=== PATIENT | female | born 1970 | race Caucasian/White ===

== ENCOUNTER 2019-07-09 17:14 | Emergency (ER) | payer BC ==
[~2019-07-09] VITALS: Ht 162.6 cm; Wt 49.9 kg
[~2019-07-09 17:14] MED LIST: AMOXICILLIN 50500 MG; ANTIVERT25 MG PO; AUGMENTIN 875875 MG PO; HYDROCODONE-AP1 EAC6 PO; IBUPROFEN 800800 M1 PO; IRON325 PO; NAPROSYN500 MG PO; NOHOMEMEDICATIONS; PRENATAL; ROBAXIN 750 MG750 M1 PO; VICODIN 5-5001 EACH PO; VITAMIN D1000 UNI1 PO
[2019-07-09 17:33] LABS: URINE BILIRUBIN NEGATIVE (Negative); URINE BLOOD 1+ (Negative); URINE CLARITY CLEAR; URINE COLOR YELLOW; URINE GLUCOSE-RANDOM NEGATIVE (Negative); URINE KETONES NEGATIVE (Negative); URINE LEUKOCYTES NEGATIVE (Negative); URINE NITRITE NEGATIVE (Negative); URINE PROTEIN NEGATIVE (Negative)
[2019-07-09 17:36] LABS: ABSOLUTE EOSINOPHILS 0.1 thou/uL (0.0-0.7); ABSOLUTE LYMPHOCYTES 2.5 thou/uL (0.8-5.3); ABSOLUTE MONOCYTES 0.4 thou/uL (0.0-1.2); BASOPHILS 0.3 %; EOSINOPHILS 0.6 %; HEMATOCRIT 38.8 % (37.0-47.0); LYMPHOCYTES 27.6 %; MCHC 33.6 g/dL (28.0-37.0); MCV 89.4 fL (80.0-100.0); MONOCYTES 4.7 %; MPV 7.7 fl. (7.2-11.1); NUCLEATED RBCS 0 /100WBC; PLATELET COUNT* 318 thou/uL (150-400); POLYS 66.8 %; RBC 4.34 mil/uL (4.20-5.00); RDW-CV 13.5 % (10.5-14.5)
[2019-07-09 17:41] LABS: BACTERIA 1-9 Few /HPF (None Seen); CASTS None Seen /LPF (None Seen); CRYSTALS None Seen /LPF (None Seen); MUCUS >6 Heavy strn/LPF (None Seen); SQUAMOUS 4-10 Moderate /LPF (0-3); URINE RBC 3-10 Few /HPF (0-2); URINE WBC 0-5 Rare /HPF (0-5)
[2019-07-09 17:47] LABS: CALCIUM 8.6 mg/dL (8.5-10.1); CREATININE 0.6 mg/dL (0.6-1.3)
[2019-07-09 17:51] LABS: ALBUMIN 3.9 g/dL (3.4-5.0); TOTAL BILIRUBIN 0.8 mg/dL (<0.1-1.0); TOTAL PROTEIN 8.3 g/dL (6.4-8.2)
[2019-07-09 19:29] VITALS: BP 130/78
== END 2019-07-09 19:30 | disposition home or self-care (01) ==
LOC: M.ERS 17:14
PROVIDERS: Physician Assistant
DX: N83.202 Unspecified ovarian cyst, left side (principal); E87.6 Hypokalemia; Z88.5 Allergy status to narcotic agent

== ENCOUNTER 2019-09-22 14:50 | Emergency (ER) | payer BC ==
[~2019-09-22] VITALS: Ht 162.6 cm; Wt 49.9 kg
[2019-09-22] MEDS ORDERED: MOBIC7.5 MG PO (15:38)
[2019-09-22] MEDS ORDERED: NORCO 5-325 TA1 EAC1 PO (15:38)
[2019-09-22 15:58] VITALS: BP 120/68
== END 2019-09-22 16:02 | disposition home or self-care (01) ==
LOC: M.ERS 14:50
DX: M25.562 Pain in left knee (principal); Z85.41 Personal history of malignant neoplasm of cervix uteri; Z90.11 Acquired absence of right breast and nipple; Z88.6 Allergy status to analgesic agent

== ENCOUNTER 2019-11-16 12:04 | Emergency (ER) | payer BC ==
[~2019-11-16] VITALS: Ht 162.6 cm; Wt 49.9 kg
[~2019-11-16 12:04] MED LIST changes: +MOBIC7.5 MG PO; +NORCO 5-325 TA1 EAC1 PO
[2019-11-16] MEDS ORDERED: KEFLEX500 M1 PO (12:54)
[2019-11-16 13:20] VITALS: BP 108/84
== END 2019-11-16 13:20 | disposition home or self-care (01) ==
LOC: M.ERS 12:04
DX: S60.450A Superficial foreign body of right index finger, initial encounter (principal); L08.9 Local infection of the skin and subcutaneous tissue, unspecified; Z88.5 Allergy status to narcotic agent; Z85.41 Personal history of malignant neoplasm of cervix uteri; X58.XXXA Exposure to other specified factors, initial encounter; Y93.89 Activity, other specified; Y92.89 Other specified places as the place of occurrence of the external cause; Y99.8 Other external cause status